=== PATIENT | female | born 2000 | race Caucasian/White ===

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

== ENCOUNTER 2023-01-05 14:56 | Emergency (ER) | payer OTHER, SELFPAY ==
[2023-01-05] MEDS ORDERED: FAMOTIDINE 20 MG/2 ML VIAL IV ONE (16:03)
[2023-01-05] MEDS ORDERED: ONDANSETRON 4 MG/2 ML VIAL ONE ×2 (16:03→19:32)
[2023-01-05] MEDS ORDERED: NA CHLORIDE 0.9% 1,000 ML ONE (16:03)
[2023-01-05 16:18] LABS: Absolute Lymphocytes (CBC) 2.4 K/uL (0.7-4.9); Hematocrit 44.1 % (36.0-45.0); Lymphocytes % 17.1 % (15.3-44.8); MCV 86.3 fL (80-100); RBC Red Blood Cell Count 5.11 M/uL (3.86-4.86)
[2023-01-05 16:35] LABS: Albumin 4.9 g/dL (3.4-5.0); Bilirubin Total 1.7 mg/dL (0.2-1.0); Potassium 3.4 mEq/L (3.5-5.1)
[2023-01-05 17:04] LABS: Urine Bacteria 20-50 /HPF (<20); Urine Bilirubin NEGATIVE (Negative); Urine Blood Negative (Negative); Urine Clarity Turbid (Clear); Urine Color Light-Yellow (Yellow); Urine Glucose NEGATIVE (Negative); Urine Mucus Slight /HPF (None Seen); Urine Protein 2+ (Negative); Urine RBC <5 /HPF (None Seen); Urine Urobilinogen Normal (Normal); Urine pH 5.5 (5.0-7.0)
--- NOTE | 2023-01-05 17:51 | RAD REPORT ---
EXAM DESCRIPTION: US - Abdomen Exam Limited - 01/05/2023 5:35 pm CLINICAL HISTORY: Abdominal pain. COMPARISON: None. FINDINGS: The gallbladder wall is not thickened. A gallstone is not seen. The biliary tree is normal caliber. IMPRESSION: Unremarkable gallbladder ultrasound.
--- NOTE | 2023-01-05 18:13 | RAD REPORT ---
EXAM DESCRIPTION: CT - Abdomen Pelvis W Contrast - 01/05/2023 5:59 pm CLINICAL HISTORY: Abdominal pain COMPARISON: none. TECHNIQUE: Computed axial tomography of the abdomen pelvis was obtained. 95 cc Isovue-300 was admini stered intravenously. Oral contrast was not requested which limits evaluation of bowel and appendix All CT scans are performed using dose optimization technique as appropriate and may include automated exposure control or mA/KV adjustment according to patient size. FINDINGS: The liver, spleen, pancreas, adrenal and kidneys appear unremarkable. There is no evidence of diverticulitis. Normal appendix 2 centimeter right ovarian cyst without significant free fluid. The gastric antrum appears mildly compressed between the left lobe of the liver and superior mesenter ic vessels IMPRESSION: 2 centimeter right ovarian cyst without significant free fluid The gastric antrum appears mildly compressed between the left lobe of the liver and superior mesenter ic vessels. This is of questionable clinical significance
--- NOTE | 2023-01-05 18:21 | ER ---
Nurse's Notes [facility] Name: Swati Pretty Age: 22 yrs Sex: Female : 2000 Arrival Date: 01/05/2023 Time: 14:56 Bed 15 Private MD: Diagnosis: UTI/ Urinary tract infection, site not specified;Other ovarian cysts;Nausea with vomiting, unspecified Presentation: 01/05 15:14 Chief complaint: Patient states: "Ever since Thursday night, I've been vomiting and mb9 nauseous. It feels like my stomach is burning and can't keep any food down.". Coronavirus screen: Vaccine status: Patient reports being unvaccinated. Ebola Screen: No symptoms or risks identified at this time. Initial Sepsis Screen: Does the patient meet any 2 criteria? No. Patient's initial sepsis screen is negative. Does the patient have a suspected source of infection? No. Patient's initial sepsis screen is negative. Risk Assessment: Do you want to hurt yourself or someone else? Patient reports no desire to harm self or others. Onset of symptoms was 2022. 15:14 Method Of Arrival: Ambulatory mb9 15:14 Acuity: LENO 3 mb9 Triage Assessment: 15:17 General: Appears uncomfortable, Behavior is calm, cooperative. Pain: Complains of pain mb9 in abdomen Quality of pain is described as burning, Pain began 2-3 days ago. Neuro: Lee Agitation-Sedation Scale (RASS): 0 - Alert and Calm Level of Consciousness is awake, alert, obeys commands, Oriented to person, place, time, situation, Appropriate for age. GI: Abdomen is flat, non-distended, Bowel sounds present X 4 quads. Abd is soft and non tender X 4 quads. Reports nausea, vomiting. Derm: Skin is pink, warm \\T\\ dry. Musculoskeletal: Range of motion: intact in all extremities. 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 - Social history:: Smoking status: Patient denies any tobacco usage or history of. Screenin:54 [facility] ED Fall Risk Assessment (Adult) History of falling in the last 3 months, ha1 including since admission No falls in past 3 months (0 pts) Confusion or Disorientation No (0 pts) Intoxicated or Sedated No (0 pts) Impaired Gait No (0 pts) Mobility Assist Device Used No (0 pt) Altered Elimination No (0 pt) Score/Fall Risk Level 0 - 2 = Low Risk Oriented to surroundings, Maintained a safe environment. Abuse screen: Denies threats or abuse. Denies injuries from another. Nutritional screening: No deficits noted. 19:56 Tuberculosis screening: No symptoms or risk factors identified. ha1 Assessment: 18:15 Reassessment: Patient appears in no apparent distress at this time. Patient and/or db family updated on plan of care and expected duration. Pain level reassessed. Patient is alert, oriented x 3, equal unlabored respirations, skin warm/dry/pink. Neuro: Level of Consciousness is awake, alert, obeys commands, Oriented to person, place, time, situation. Respiratory: Airway is patent Respiratory effort is even, unlabored, Respiratory pattern is regular, symmetrical. GI: Abdomen is flat, non-distended, Reports nausea, vomiting. 18:45 Reassessment: PATIENT PROVIDED CRACKERS AND WATER FOR PO CHALLENGE. db 19:26 Reassessment: Patient appears in no apparent distress at this time. Patient and/or db family updated on plan of care and expected duration. Pain level reassessed. Patient is alert, oriented x 3, equal unlabored respirations, skin warm/dry/pink. DC HELD DUE TO PATIENT COMPLAINING OF PAIN AFTER PO CHALLENGE. DR. LEAHY NOTIFIED. NEW ORDER FOR ZOFRAN AND FENTANYL RECEIVED. 19:42 Reassessment: Patient appears in no apparent distress at this time. Patient and/or db family updated on plan of care and expected duration. Pain level reassessed. Patient is alert, oriented x 3, equal unlabored respirations, skin warm/dry/pink. denies pain now. 19:54 Reassessment: Patient and/or family updated on plan of care and expected duration. Pain ha1 level reassessed. Patient is alert, oriented x 3, equal unlabored respirations, skin warm/dry/pink. Patient denies pain at this time. Patient states feeling better. Patient states symptoms have improved. Vital Signs: 15:14 BP 129 / 92; Pulse 70; Resp 18; Temp 98.6; Pulse Ox 99% on R/A; Weight 54.88 kg; Height mb9 5 ft. 6 in. ; 18:47 BP 141 / 86; Pulse 62; Resp 16; Pulse Ox 100% on R/A; db 19:26 BP 120 / 68; Pulse 60; Resp 16; Pulse Ox 100% on R/A; Pain 6/10; db 19:30 BP 117 / 69; Pulse 65; Resp 16; Pulse Ox 100% on R/A; db 19:52 BP 112 / 65; Pulse 62; Resp 18 S; Pulse Ox 100% on R/A; ha1 15:14 Body Mass Index 19.53 (54.88 kg, 167.64 cm) mb9 19:26 Pain Scale: Adult db ED Course: 14:59 Patient arrived in ED. am2 15:01 [facility] kb 15:02 Mikhail Galvez MD is Attending Physician. kb 15:14 Arm band placed on. mb9 15:16 Triage completed. mb9 16:03 Inserted saline lock: 22 gauge in left forearm, using aseptic technique. mb9 16:04 Initial lab(s) drawn, by me, sent to lab. em1 17:02 Roxanne Torres, RN is Primary Nurse. db 17:36 Abdomen Exam Limited In Process Unspecified. EDMS 18:01 CT Abd/Pelvis - IV Contrast Only In Process Unspecified. EDMS 19:00 Patient has correct armband on for positive identification. Placed in gown. Bed in low ha1 position. Call light in reach. Side rails up X 1. Adult w/ patient. 19:20 Pawel Schneider MD is Referral Physician. rosemarie 19:55 No provider procedures requiring assistance completed. IV discontinued, intact, ha1 bleeding controlled, No redness/swelling at site. Pressure dressing applied. 19:56 Provided Education on: follow up . ha1 Administered Medications: 15:55 Drug: Ondansetron IVP 4 mg Route: IVP; Site: left forearm; mb9 16:03 Drug: Famotidine IVP 20 mg Route: IVP; Site: left forearm; mb9 16:03 Drug: NS 0.9% IV 1000 ml Route: IV; Rate: 1000 ml; Site: left forearm; mb9 19:30 Drug: Ondansetron IVP 4 mg Route: IVP; Site: left forearm; db 19:54 Follow up: Response: No adverse reaction; Nausea is decreased ha1 19:32 Drug: fentaNYL (PF) IVP 25 mcg Route: IVP; Site: left forearm; db 19:54 Follow up: Response: No adverse reaction; Pain is decreased; RASS: Alert and Calm (0) ha1 19:53 Not Given (Patient Refused): fentaNYL (PF) IVP 25 mcg IVP once ha1 Medication: 19:56 VIS not applicable for this client. ha1 Outcome: 18:20 Discharge ordered by . kb 19:55 Discharged to home ambulatory, with family. ha1 19:55 Condition: stable 19:55 Discharge instructions given to patient, family, Instructed on discharge instructions, follow up and referral plans. medication usage, Demonstrated understanding of instructions, follow-up care, medications, Prescriptions given X 3. 19:57 Patient left the ED. ha1 Signatures: Dispatcher [employer] EDMS Beth Bustillo, SALES PORTER-C SALES PORTER-Ckb Zackery Leahy MD MD cha Martinez, Eric em1 Va Sweeney am2 Jeanette Freeman RN RN ha1 Roxanne Torres RN RN db Breneman, Mary Beth, RN RN mb9 Corrections: (The following items were deleted from the chart) 15:17 15:16 Home Meds: Albuterol Inhl; mb9 mb9 15:17 15:16 Home Meds: rizatriptan Oral; mb9 mb9 19:41 19:26 BP 120 / 68; Pulse 60bpm; Resp 16bpm; Pulse Ox 100% RA; db db
--- NOTE | 2023-01-05 18:22 | EDPHYS ---
Physician Documentation [facility] Name: Swati Pretty Age: 22 yrs Sex: Female : 2000 Arrival Date: 01/05/2023 Time: 14:56 Bed 15 Private MD: ED Physician Mikhail Galvez HPI: 01/05 16:18 This 22 yrs old Female presents to ER via Ambulatory with complaints of kb Abdominal Pain, Nausea/Vomiting. 16:18 The patient presents with abdominal pain in the upper abdomen. Onset: The kb symptoms/episode began/occurred 2 day(s) ago. The symptoms do not radiate. Associated signs and symptoms: Pertinent positives: nausea and vomiting, Pertinent negatives: diarrhea, fever. The symptoms are described as constant. Modifying factors: The symptoms are alleviated by nothing, the symptoms are aggravated by nothing. Severity of pain: At its worst the pain was moderate in the emergency department the pain is unchanged. The patient has not experienced similar symptoms in the past. The patient has not recently seen a physician. 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 - Social history:: Smoking status: Patient denies any tobacco usage or history of. ROS: 16:17 Constitutional: Negative for fever, chills, and weight loss. kb 16:17 Abdomen/GI: Positive for abdominal pain, nausea and vomiting, Negative for diarrhea. 16:17 All other systems are negative. Exam: 16:17 Constitutional: This is a well developed, well nourished patient who is awake, alert, kb and in no acute distress. Head/Face: Normocephalic, atraumatic. ENT: Moist Mucous membranes Cardiovascular: Regular rate and rhythm with a normal S1 and S2. No gallops, murmurs, or rubs. No pulse deficits. Respiratory: Respirations even and unlabored. No increased work of breathing. Talking in full sentences Skin: Warm, dry with normal turgor. Normal color. MS/ Extremity: Pulses equal, no cyanosis. Neurovascular intact. Full, normal range of motion. Neuro: Awake and alert, GCS 15, oriented to person, place, time, and situation. Moves all extremities. Normal gait. 16:17 Abdomen/GI: Inspection: abdomen appears normal, Bowel sounds: normal, Palpation: soft, in all quadrants, moderate abdominal tenderness, in the right upper quadrant and left upper quadrant. Vital Signs: 15:14 BP 129 / 92; Pulse 70; Resp 18; Temp 98.6; Pulse Ox 99% on R/A; Weight 54.88 kg; Height mb9 5 ft. 6 in. ; 18:47 BP 141 / 86; Pulse 62; Resp 16; Pulse Ox 100% on R/A; db 19:26 BP 120 / 68; Pulse 60; Resp 16; Pulse Ox 100% on R/A; Pain 6/10; db 19:30 BP 117 / 69; Pulse 65; Resp 16; Pulse Ox 100% on R/A; db 19:52 BP 112 / 65; Pulse 62; Resp 18 S; Pulse Ox 100% on R/A; ha1 15:14 Body Mass Index 19.53 (54.88 kg, 167.64 cm) mb9 19:26 Pain Scale: Adult db MDM: 15:02 Patient medically screened. kb 16:17 Differential diagnosis: cholecystitis, Cholelithiasis, gastritis, gastroesophageal kb reflux disease, non-specific abd pain. Data reviewed: vital signs, nurses notes. 18:20 Counseling: I had a detailed discussion with the patient and/or guardian regarding: the kb historical points, exam findings, and any diagnostic results supporting the discharge/admit diagnosis, lab results, radiology results, the need for outpatient follow up, a family practitioner, an OB/Gyne specialist, to return to the emergency department if symptoms worsen or persist or if there are any questions or concerns that arise at home. 01/05 16:56 Order name: Test, Urine; Complete Time: 17:06 EDWY 01/05 16:56 Order name: Urinalysis w/ reflexes; Complete Time: 17:06 EDWY 01/05 17:11 Order name: Abdomen Exam Limited; Complete Time: 17:52 EDWY 01/05 17:34 Order name: CT Abd/Pelvis - IV Contrast Only; Complete Time: 18:16 kb 01/05 15:02 Order name: IV Saline Lock; Complete Time: 16:03 kb 01/05 15:02 Order name: Labs collected and sent; Complete Time: 16:03 kb 01/05 18:17 Order name: PO challenge; Complete Time: 18:55 kb Administered Medications: 15:55 Drug: Ondansetron IVP 4 mg Route: IVP; Site: left forearm; mb9 16:03 Drug: Famotidine IVP 20 mg Route: IVP; Site: left forearm; mb9 16:03 Drug: NS 0.9% IV 1000 ml Route: IV; Rate: 1000 ml; Site: left forearm; mb9 19:30 Drug: Ondansetron IVP 4 mg Route: IVP; Site: left forearm; db 19:54 Follow up: Response: No adverse reaction; Nausea is decreased ha1 19:32 Drug: fentaNYL (PF) IVP 25 mcg Route: IVP; Site: left forearm; db 19:54 Follow up: Response: No adverse reaction; Pain is decreased; RASS: Alert and Calm (0) ha1 19:53 Not Given (Patient Refused): fentaNYL (PF) IVP 25 mcg IVP once ha1 Disposition: 01/06 10:33 Co-signature as Attending Physician, Mikhail Galvez MD I reviewed the patient's care rn provided by the Advanced Practice Provider and agree with the diagnosis and treatment plan. Disposition Summary: 01/05/23 18:20 Discharge Ordered Location: Home kb Condition: Stable kb Diagnosis - UTI/ Urinary tract infection, site not specified kb - Other ovarian cysts kb - Nausea with vomiting, unspecified kb Followup: kb - With: Emergency Department - When: As needed - Reason: Worsening of condition Followup: kb - With: Private Physician - When: 2 - 3 days - Reason: Recheck today's complaints, Continuance of care, Re-evaluation by your physician Followup: rosemarie - With: Pawel Schneider MD - When: 2 - 3 days - Reason: Recheck today's complaints, Continuance of care, Re-evaluation by your physician Discharge Instructions: - Discharge Summary Sheet kb - Nausea and Vomiting, Adult kb - Urinary Tract Infection, Adult, [id number] kb - Ovarian Cyst, [id number] kb Forms: - Medication Reconciliation Form kb - Thank You Letter kb - Antibiotic Education kb - Prescription Opioid Use kb - Patient Portal Instructions kb Prescriptions: - ondansetron 4 mg Oral Tablet,disintegrating - take 1 tablet by ORAL route every 6 hours As needed; 20 tablet; Refills: 0, kb Product Selection Permitted - Macrobid 100 mg Oral Capsule - take 1 capsule by ORAL route every 12 hours for 10 days; 20 capsule; Refills: kb 0, Product Selection Permitted - Diclofenac Sodium 75 mg Oral tablet,delayed release (DR/EC) - take 1 tablet by ORAL route 2 times per day As needed; 30 tablet; Refills: 0, kb Product Selection Permitted Signatures: Dispatcher [employer] Beth Hinton, KELSYC KALYN-Zackery Rocha MD MD cha Nieto, Roman, MD MD rn Benton, Danielle RN RN Peggy Ge RN RN mb9 Jeanette Freeman RN ha1 Corrections: (The following items were deleted from the chart) 01/05 15:17 15:16 Home Meds: Albuterol Inhl; mb9 mb9 15:17 15:16 Home Meds: rizatriptan Oral; mb9 mb9 17:23 17:10 Abdomen Limited+[email or web address] ordered. [facility]
[2023-01-05] MEDS ORDERED: FENTANYL CITR 100 MCG/2 ML ONE (19:32)
[2023-01-05 23:44] VITALS: TEMP 98.6
[2023-01-05 23:50] VITALS: O2SAT 100
[2023-01-05 23:52] VITALS: BP 117/69
== END 2023-01-05 19:57 | disposition home or self-care (01) ==
LOC: ER 14:56
DX: N39.0 Urinary tract infection, site not specified (principal); N83.299 Other ovarian cyst, unspecified side; R11.2 Nausea with vomiting, unspecified; J45.909 Unspecified asthma, uncomplicated
CPT/HCPCS: 36415; 74177; 76705; 80053; 81001; 81025; 83690; 85025; 96374; 96375; 99284; J2405; J3010; J7030; Q9967